=== PATIENT | male | born 1995 | race Hispanic/Latino ===

== ENCOUNTER 2019-06-29 10:05 | Emergency (ER) | payer SELFPAY ==
[~2019-06-29] VITALS: Ht 170.2 cm; Wt 86.2 kg
[~2019-06-29 10:05] MED LIST: DEPAKOTE ER500 MG PO
--- OUTSIDE RECORDS SUMMARY | 2019-06-29 10:08 | XMS REPORT ---
Author Author [facility] Address Unknown Phone Unavailable Care Team Providers Care Manifest Clerk Name Role Phone Unavailable Unavailable Problems This patient has no known problems. Allergies, Adverse Reactions, Alerts This patient has no known allergies or adverse reactions. Medications This patient has no known medications. Encounters Start Date/Time End Date/Time Encounter Type Admission Type Attending Clinicians Care Facility Care Department Encounter ID 2016-12-31 11:20:29 2016-12-31 11:20:29 Emergency [facility] [id number]
[2019-06-29 10:14] VITALS: BP 172/92
[2019-06-29 10:41] LABS: CLARITY,URINE CLEAR (CLEAR); COLOR,URINE YELLOW (YELLOW)
[2019-06-29 10:42] LABS: AMPHETAMINES SCREEN,URINE NEGATIVE (NEGATIVE); KETONES,URINE TRACE (NEGATIVE); LEUKOCYTE ESTERASE ,URINE NEGATIVE (NEGATIVE); NITRITE,URINE NEGATIVE (NEGATIVE); PHENCYCLIDINE SCREEN,URINE NEGATIVE (NEGATIVE); PROTEIN,URINE DIPSTICK 1+ (NEGATIVE)
[2019-06-29 10:43] LABS: BENZODIAZEPINES SCREEN,URINE NEGATIVE (NEGATIVE); BILIRUBIN,URINE NEGATIVE (NEGATIVE); URINE UROBILINOGEN 0.2 mg/dL (0.2 - 1)
[2019-06-29 10:44] LABS: BACTERIA,URINE RARE /HPF; EPITHELIAL CELLS,URINE FEW /LPF; RBC,URINE 0-5 /HPF (0-5); WBC,URINE (MAN) 0-5 /HPF (0-5)
== END 2019-06-29 11:06 | disposition home or self-care (01) ==
LOC: ER 10:05
DX: I10 Essential (primary) hypertension (principal); R33.9 Retention of urine, unspecified; F12.90 Cannabis use, unspecified, uncomplicated
CPT/HCPCS: 80307; 81001; 87086; 99282

== ENCOUNTER 2020-07-11 00:52 | Emergency (ER) | payer SELFPAY ==
[~2020-07-11] VITALS: Ht 170.2 cm; Wt 86.2 kg
[2020-07-11] MEDS ORDERED: ZITHROMAX500 MG PO (01:07)
[2020-07-11] MEDS ORDERED: DOXYCYCLINE HY100 MG PO (01:07)
[2020-07-11 01:22] LABS: CLARITY,URINE CLOUDY (CLEAR); COLOR,URINE YELLOW (YELLOW)
[2020-07-11 01:23] LABS: KETONES,URINE NEGATIVE (NEGATIVE); LEUKOCYTE ESTERASE ,URINE 1+ (NEGATIVE); NITRITE,URINE NEGATIVE (NEGATIVE); PROTEIN,URINE DIPSTICK TRACE (NEGATIVE); URINE UROBILINOGEN 0.2 mg/dL (0.2 - 1)
[2020-07-11 01:32] LABS: BACTERIA,URINE MANY /HPF; EPITHELIAL CELLS,URINE FEW /LPF; WBC,URINE (MAN) >50 /HPF (0-5)
== END 2020-07-11 01:35 | disposition home or self-care (01) ==
LOC: ER 01:07
DX: A54.9 Gonococcal infection, unspecified (principal); A74.9 Chlamydial infection, unspecified; R30.0 Dysuria; G40.909 Epilepsy, unspecified, not intractable, without status epilepticus; F17.210 Nicotine dependence, cigarettes, uncomplicated
CPT/HCPCS: 81001; 99283

== ENCOUNTER 2020-07-15 15:41 | Emergency (ER) | payer SELFPAY ==
[~2020-07-15] VITALS: Ht 170.2 cm; Wt 86.2 kg
[~2020-07-15 15:41] MED LIST changes: +DOXYCYCLINE HY100 MG PO; +ZITHROMAX500 MG PO
[2020-07-15 16:39] LABS: CLARITY,URINE SL CLOUDY (CLEAR); COLOR,URINE YELLOW (YELLOW); KETONES,URINE NEGATIVE (NEGATIVE); LEUKOCYTE ESTERASE ,URINE NEGATIVE (NEGATIVE); NITRITE,URINE NEGATIVE (NEGATIVE); PROTEIN,URINE DIPSTICK TRACE (NEGATIVE)
[2020-07-15 16:40] LABS: URINE UROBILINOGEN 0.2 mg/dL (0.2 - 1)
[2020-07-15 16:51] LABS: BACTERIA,URINE MODERATE /HPF; RBC,URINE 21-50 /HPF (0-5)
[2020-07-15 18:15] VITALS: BP 142/99
== END 2020-07-15 18:15 | disposition home or self-care (01) ==
LOC: ER 16:15
DX: R31.9 Hematuria, unspecified (principal); N39.0 Urinary tract infection, site not specified; G40.909 Epilepsy, unspecified, not intractable, without status epilepticus
CPT/HCPCS: 81001; 99283

== ENCOUNTER 2020-07-20 04:00 | Emergency (ER) | payer SELFPAY ==
[~2020-07-20] VITALS: Ht 170.2 cm; Wt 86.2 kg
[2020-07-20] MEDS ORDERED: KETOROLAC TROMETHAMINE 30 MG/ML VIAL IV STA (04:08)
[2020-07-20 04:19] LABS: BASOPHILS # (AUTO) 0.1 (0.0-0.1); BASOPHILS % 0.5 % (0.0-1.0); EOSINOPHILS # (AUTO) 0.2 (0.0-0.4); EOSINOPHILS % 1.6 % (0.0-6.0); HEMATOCRIT 42.7 % (38.2-49.6); HEMOGLOBIN 14.3 g/dL (14.0-18.0); LYMPHOCYTES # (AUTO) 3.9 (1.0-3.2); LYMPHOCYTES % 30.6 % (18.0-39.1); MEAN CORPUSCULAR HEMOGLOBIN 28.9 pg (28-32); MEAN CORPUSCULAR HGB CONC 33.5 g/dL (31-35); MEAN CORPUSCULAR VOLUME 86.3 fL (81-99); MONOCYTES % 7.6 % (4.4-11.3); NEUTROPHILS # (AUTO) 7.6 (2.1-6.9); NEUTROPHILS % 59.2 % (38.7-80.0); PLATELET COUNT 253 x10e3/uL (140-360); RED BLOOD COUNT 4.95 x10e6/uL (4.3-5.7); RED CELL DISTRIBUTION WIDTH 13.4 % (11.7-14.4)
[2020-07-20 04:20] LABS: CLARITY,URINE SL CLOUDY (CLEAR); COLOR,URINE YELLOW (YELLOW); KETONES,URINE NEGATIVE (NEGATIVE); LEUKOCYTE ESTERASE ,URINE NEGATIVE (NEGATIVE); NITRITE,URINE NEGATIVE (NEGATIVE); PROTEIN,URINE DIPSTICK NEGATIVE (NEGATIVE); URINE UROBILINOGEN 0.2 mg/dL (0.2 - 1)
[2020-07-20 04:28] LABS: BACTERIA,URINE RARE /HPF; RBC,URINE >50 /HPF (0-5)
[2020-07-20 04:29] LABS: EPITHELIAL CELLS,URINE FEW /LPF
[2020-07-20 04:35] LABS: ANION GAP 12.8 mmol/L (8-16); BLOOD UREA NITROGEN 9 mg/dL (7-26); BUN/CREATININE RATIO 13 (6-25); CALCIUM 8.7 mg/dL (8.4-10.2); CARBON DIOXIDE 21 mmol/L (22-29); CHLORIDE 108 mmol/L (98-107); EST GLOMERULAR FILTRATION RATE > 60 ML/MIN (60-); GLUCOSE 98 mg/dL (74-118); POTASSIUM 3.8 mmol/L (3.5-5.1); SODIUM 138 mmol/L (136-145)
[2020-07-20] MEDS ORDERED: CEFTRIAXONE SOD 500 MG VIAL IM ONE (05:45)
[2020-07-20] MEDS ORDERED: CEFTRIAXONE SOD 1 GM VIAL ONE (06:16)
[2020-07-20 06:51] VITALS: BP 145/71
== END 2020-07-20 06:53 | disposition home or self-care (01) ==
LOC: ER 05:27
DX: N50.811 Right testicular pain (principal); R31.9 Hematuria, unspecified; M54.5 Low back pain; G40.909 Epilepsy, unspecified, not intractable, without status epilepticus
CPT/HCPCS: 36415; 74176; 76870; 80048; 81001; 85025; 93976; 99283; J0696; J1885

== ENCOUNTER 2020-09-01 01:07 | Emergency (ER) | payer SELFPAY ==
[~2020-09-01] VITALS: Ht 170.2 cm; Wt 86.2 kg
[2020-09-01 03:04] LABS: CLARITY,URINE CLOUDY (CLEAR); COLOR,URINE YELLOW (YELLOW); KETONES,URINE NEGATIVE (NEGATIVE); LEUKOCYTE ESTERASE ,URINE SMALL (NEGATIVE); NITRITE,URINE NEGATIVE (NEGATIVE); PROTEIN,URINE DIPSTICK NEGATIVE (NEGATIVE); URINE UROBILINOGEN 0.2 mg/dL (0.2 - 1)
[2020-09-01 03:12] LABS: AMORPHOUS SEDIMENT,URINE MODERATE (FEW); BACTERIA,URINE FEW /HPF; EPITHELIAL CELLS,URINE RARE /LPF; WBC,URINE (MAN) 21-50 /HPF (0-5)
[2020-09-01] MEDS ORDERED: DOXYCYCLINE HY100 MG PO (03:38)
[2020-09-01] MEDS ORDERED: ZITHROMAX500 MG PO (03:38)
== END 2020-09-01 03:57 | disposition home or self-care (01) ==
LOC: ER 02:10
DX: R30.0 Dysuria (principal); N39.0 Urinary tract infection, site not specified; A54.9 Gonococcal infection, unspecified; A74.9 Chlamydial infection, unspecified; G40.909 Epilepsy, unspecified, not intractable, without status epilepticus; F17.210 Nicotine dependence, cigarettes, uncomplicated
CPT/HCPCS: 81001; 99282